=== PATIENT | female | born 1950 | race Caucasian/White ===

== ENCOUNTER 2018-04-19 13:36 | Observation (INO) | payer MEDICARE, OTHER ==
[2018-04-19] MEDS ORDERED: PIPERACILLIN SODIUM/TAZOBACTAM 3.375 GM in NORMAL SALINE 100 ML IV ONE (15:00)
[2018-04-19] MEDS: NORMAL SALINE 1000 ML 1,000 ML IV PRN (15:46)
[2018-04-19 15:54] LABS: ABSOLUTE EOSINOPHILS # (AUTO) 0.2 10^3/uL (0.0-0.6); ABSOLUTE LYMPHOCYTES (AUTO) 1.8 10^3/uL (0.5-4.7); ABSOLUTE MONOCYTES (AUTO) 0.9 10^3/uL (0.1-1.4); ABSOLUTE NEUT (AUTO) 7.5 10^3/uL (1.7-8.2); BASOPHILS % (AUTO) 0.4 % (0-2); EOSINOPHILS % (AUTO) 1.9 % (0-6); HEMATOCRIT 41.9 % (36.0-47.0); HEMOGLOBIN 13.9 g/dL (12.0-15.5); LYMPHOCYTES % (AUTO) 17.1 % (13-45); MEAN CORPUSCULAR HEMOGLOBIN 29.5 pg (27.0-33.4); MEAN CORPUSCULAR HGB CONC 33.2 g/dL (32.0-36.0); MEAN CORPUSCULAR VOLUME 89 fl (80-97); MONOCYTES % (AUTO) 8.4 % (3-13); PLATELET COUNT 269 10^3/uL (150-450); RED BLOOD COUNT 4.72 10^6/uL (3.72-5.28); RED CELL DISTRIBUTION WIDTH 14.3 % (11.5-14.0); SEGMENTED NEUTROPHILS % (AUTO) 72.2 % (42-78); TOTAL CELLS COUNTED % (AUTO) 100 %; WHITE BLOOD COUNT 10.3 10^3/uL (4.0-10.5)
[2018-04-19 16:17] LABS: ALANINE AMINOTRANSFERASE 42 U/L (9-52); ALBUMIN 4.3 g/dL (3.5-5.0); ALKALINE PHOSPHATASE 70 U/L (38-126); ANION GAP 12 (5-19); ASPARTATE AMINO TRANSFERASE 19 U/L (14-36); BILIRUBIN,DIRECT 0.3 mg/dL (0.0-0.4); BILIRUBIN,TOTAL 0.8 mg/dL (0.2-1.3); BLOOD UREA NITROGEN 14 mg/dL (7-20); CALCIUM 9.9 mg/dL (8.4-10.2); CARBON DIOXIDE 25 mmol/L (22-30); CHLORIDE 107 mmol/L (98-107); GLUCOSE 98 mg/dL (75-110); SODIUM 144.2 mmol/L (137-145); TOTAL PROTEIN 7.2 g/dL (6.3-8.2)
[2018-04-19] MEDS: PIPERACILLIN SODIUM/TAZOBACTAM 3.375 GM in NORMAL SALINE 100 ML IV SCH (22:06)
--- NOTE | 2018-04-19 22:16 | EKG REPORT ---
SEVERITY:- BORDERLINE ECG - SINUS RHYTHM BORDERLINE INFERIOR Q WAVES : Confirmed by: Dannie Brar 19-Apr-2018 22:15:59
[2018-04-19] MEDS ORDERED: LIDOCAINE 1% INJ-PF (10 MG/ML) 30 ML SDV ONE (23:08)
[2018-04-19] MEDS ORDERED: MIDAZOLAM 2 MG/2 ML INJ ONE (23:18)
[2018-04-19] MEDS ORDERED: HYDROMORPHONE HCL INJ/PF 2 MG/ML AMPULE ONE (23:19)
[2018-04-19] MEDS ORDERED: PROPOFOL INJ 200 MG/20 ML VIAL IV ONE (23:19)
[2018-04-20] MEDS ORDERED: DIPHENHYDRAMINE HCL 50 MG/ML VIAL IV PRN (00:18)
[2018-04-20] MEDS ORDERED: FENTANYL CITRATE INJ/PF 100 MCG/2 ML AMPUL IV PRN ×3 (00:18)
[2018-04-20] MEDS ORDERED: ONDANSETRON HCL INJ/PF 4 MG/2 ML SDV IV PRN (00:18)
[2018-04-20] MEDS ORDERED: OXYCODONE-ACETAMINOPHEN 5-325 MG TABLET PO PRN (00:43)
--- NOTE | 2018-04-20 01:00 | OPERATIVE REPORT E ---
Operative Report NAME: GRETCHEN MARS : 1950 AGE: 67Y DATE OF SURGERY: 04/20/2018 ROOM: 323 PREOPERATIVE DIAGNOSIS: ABSCESS OF LEFT CLAVICULAR AREA. POSTOPERATIVE DIAGNOSIS: ABSCESS OF LEFT CLAVICULAR AREA. OPERATION: Incision and drainage abscess left clavicular area. SURGEON: BRIE BUENO M.D. ANESTHESIA: Local MAC. INDICATION: This is a 67-year-old female who claimed she had an insect bite on the left clavicular area about a week ago. This was gradually noted to get more swollen, tender, and red. She was seen in the surgical clinic and subsequently referred to me for incision and drainage in the OR. PROCEDURE: After adequate IV sedation, the patient was placed in supine position and the left clavicular area was then prepped and draped in the usual sterile fashion. Appropriate timeout was then called. Next, local anesthesia was then infiltrated around abscess cavity site. It roughly measured about 2 x 2 cm. Next, a vertical incision was made through the abscess and small amount of purulent material extruded out, and this was then cultured. Next, the cavity was then irrigated with saline solution. The incision was about 1.5 cm long, occupying the whole cavity. It was deep into the subcutaneous area, but appears to be about the fascia. Following this, the cavity was packed with 1/4 inch Iodoform gauze. Sterile dressing was placed over the operative site. Needle, instrument, and sponge count were all correct, and estimated blood loss was about 1 mL. The patient was brought to the recovery room in satisfactory condition. DICTATING PHYSICIAN: BRIE BUENO M.D. [id number] PHY#: [id number] ID: [id number] JOB#: [id number] ACCT: [id number] cc:BRIE BUENO M.D. >
--- NOTE | 2018-04-20 01:05 | HISTORY AND PHYSICAL E ---
History and Physical NAME: GRETCHEN MARS : 1950 AGE: 67Y ADMITTED: 04/19/2018 ROOM: 323 PROCEDURE DONE: Incision and drainage abscess left clavicular area. FINAL DIAGNOSIS: ABSCESS LEFT CLAVICULAR AREA. CHIEF COMPLAINT: Left clavicular pain after possibly bitten by an insect about a week ago. This area gradually got bigger and tender and red. She was then seen at the surgical clinic and referred to me for incision and drainage in the operating room. PAST HISTORY: History of asthma. Takes Ventolin for this. SOCIAL HISTORY: Drinks beer occasionally. FAMILY HISTORY: Mother had a history of diabetes. ALLERGIES: None known. REVIEW OF SYSTEMS: Denies any headaches, chest pain, shortness of breath, cough, abdominal pain, dysuria, fever, or chills. The rest of the systems is unremarkable. PHYSICAL EXAMINATION: GENERAL: Well developed, slightly obese female, alert and oriented, in no apparent acute distress. NECK: Supple, no thyromegaly. LUNGS: Clear. HEART: Regular sinus rhythm. ABDOMEN: Soft, nontender. EXTREMITIES: No edema. CHEST: Abscess that is red and swollen in the left clavicular area, roughly about 2 x 2 cm in diameter. RECTAL: Deferred. NEUROLOGIC: Alert and oriented. No history of seizures. SKIN: Warm. IMPRESSION: ABSCESS OF THE LEFT CLAVICULAR AREA. PLAN: Patient for I and D. Started on IV antibiotics on the floor. DICTATING PHYSICIAN: BRIE BUENO M.D. [id number] PHY#: [id number] ID: [id number] JOB#: [id number] ACCT: [id number] cc: >
[2018-04-20] MEDS ORDERED: ONDANSETRON 4 MG TAB.RAPDIS ONE (01:06)
[2018-04-20] MEDS ORDERED: ALBUTEROL SULFATE HFA (90 MCG/PUFF) 200 PUFF/8.5 GM MDI IH ONE (01:29)
[2018-04-20] MEDS ORDERED: ONDANSETRON 4 MG TAB.RAPDIS PO ONE (01:30)
[2018-04-20] MEDS: ALBUTEROL SULFATE 0.083% NEB 2.5 MG/3 ML AMPUL NEB ONE ×2 (01:38→02:20)
[2018-04-20] MEDS: PIPERACILLIN SODIUM/TAZOBACTAM 3.375 GM in NORMAL SALINE 100 ML IV SCH ×2 (02:33→08:58)
[2018-04-20] MEDS: CLINDAMYCIN 600 MG/D5W RTU 600 MG/50 ML RTUPB IV SCH ×2 (02:33→08:57)
[2018-04-20] MEDS: NORMAL SALINE 1000 ML 1,000 ML IV PRN (02:34)
[2018-04-20 10:56] VITALS: BP 124/83
== END 2018-04-20 11:30 | disposition home or self-care (01) ==
LOC: INTOOBSV 13:36 → 3W 13:36
PROVIDERS: ADMIT Surgery; ATTEND Surgery
PROC: 0J9F0ZZ Drainage of Left Upper Arm Subcutaneous Tissue and Fascia, Open Approach (ICD-10-PCS; principal; 2018-04-20)
DX: L02.414 Cutaneous abscess of left upper limb (principal); J45.909 Unspecified asthma, uncomplicated; Z87.11 Personal history of peptic ulcer disease; Z79.899 Other long term (current) drug therapy
CPT/HCPCS: 36415; 87070; 87205; 85025; 87075; 87077; 80053; 87186; 93005; 93010; 10060; J2250; A9270 ×2; J3490; J1170; J7030 ×2; J2704; J2543 ×2; 400; A6266; G0378; G0379; S0119